=== PATIENT | female | born 1980 | race African-American/Black ===

== ENCOUNTER 2023-11-21 20:25 | Emergency (ER) | payer OTHER ==
[2023-11-21 20:30] VITALS: BP 118/62; PULSE 62; RESP 18; TEMP 99; BMI 30.7
== END 2023-11-21 22:01 | disposition home or self-care (01) ==
LOC: JERFT 20:25
DX: S61.451A Open bite of right hand, initial encounter (principal); W50.3XXA Accidental bite by another person, initial encounter
CPT/HCPCS: 99281-25

== ENCOUNTER 2024-08-10 20:58 | Emergency (ER) | payer OTHER ==
[2024-08-10 21:06] VITALS: BP 122/53; PULSE 79; RESP 18; TEMP 98.6; BMI 31.6
== END 2024-08-10 21:57 | disposition home or self-care (01) ==
LOC: JERFT 20:58
DX: Z20.822 Contact with and (suspected) exposure to COVID-19 (principal)
CPT/HCPCS: 0241U-QW; 99283-25